=== PATIENT | female | born 1960 | race Caucasian/White ===

== ENCOUNTER 2016-08-01 01:26 | Emergency (ER) | payer OTHER ==
[~2016-08-01] VITALS: Ht 160 cm; Wt 52.8 kg
[~2016-08-01 01:26] MED LIST: HYDR-3307 PO; LISI-167 PO
[2016-08-01 01:36] VITALS: BP 135/88
[2016-08-01 02:31] LABS: BLOOD UREA NITROGEN 15 mg/dL (7-18)
[2016-08-01 02:34] LABS: ASPARTATE AMINO TRANSFERASE 37 U/L (15-37)
== END 2016-08-01 03:18 | disposition home or self-care (01) ==
LOC: ED 02:20
DX: R30.0 Dysuria (principal); I10 Essential (primary) hypertension; Z88.6 Allergy status to analgesic agent; Z88.8 Allergy status to other drugs, medicaments and biological substances
CPT/HCPCS: 36415; 80053; 81003; 83690; 85025; 99284

== ENCOUNTER 2017-01-13 18:30 | Emergency (ER) | payer OTHER ==
[~2017-01-13] VITALS: Ht 160 cm; Wt 52.2 kg
[2017-01-13] MEDS ORDERED: ASPIRIN 81 MG TABLET CHEW PO ONE (19:00)
[2017-01-13] MEDS ORDERED: ASPIRIN 81 MG TABLET CHEW ONE (19:05)
[2017-01-13 19:49] LABS: HEMATOCRIT 42.9 % (34.6-47.8); HEMOGLOBIN 14.8 g/dL (11.7-16.4); WHITE BLOOD COUNT 6.1 x10^3/uL (3.4-10)
[2017-01-13 20:01] LABS: BLOOD UREA NITROGEN 11 mg/dL (7-18)
[2017-01-13 20:06] LABS: IS PT STATUS REG ER OR PRE ER? YES
[2017-01-13 21:20] VITALS: BP 122/78
== END 2017-01-13 21:22 | disposition home or self-care (01) ==
LOC: ED 21:03
DX: R07.89 Other chest pain (principal); I10 Essential (primary) hypertension; F17.200 Nicotine dependence, unspecified, uncomplicated
CPT/HCPCS: 36415; 71020; 80048; 82040; 84484; 85025; 93005; 99285

== ENCOUNTER 2017-02-01 01:34 | Emergency (ER) | payer SELFPAY ==
[~2017-02-01] VITALS: Ht 160 cm; Wt 52.1 kg
[2017-02-01] MEDS ORDERED: DIAZEPAM 5 MG TABLET ONE (02:28)
[2017-02-01] MEDS ORDERED: OXYcodone/APAP 5/325MG TABLET ONE (02:28)
[2017-02-01] MEDS ORDERED: KETOROLAC 30 MG/1 ML ONE (02:29)
[2017-02-01] MEDS ORDERED: DIAZEPAM 5 MG TABLET PO ONE (02:30)
[2017-02-01] MEDS ORDERED: KETOROLAC 30 MG/1 ML IM ONE (02:30)
[2017-02-01] MEDS ORDERED: OXYcodone/APAP 5/325MG TABLET PO ONE (02:30)
[2017-02-01] MEDS ORDERED: CAPTOPRIL 50 MG TABLET PO ONE (04:00)
[2017-02-01 05:22] VITALS: BP 137/97
== END 2017-02-01 05:23 | disposition home or self-care (01) ==
LOC: ED 02:03
DX: M79.621 Pain in right upper arm (principal); I10 Essential (primary) hypertension
CPT/HCPCS: 71010; 73030; 93005; 96372; 99284; J1885

== ENCOUNTER 2017-09-05 05:58 | Emergency (ER) | payer SELFPAY ==
[~2017-09-05] VITALS: Ht 160 cm; Wt 50.0 kg
[2017-09-05 05:58] VITALS: BP 186/108
[2017-09-05] MEDS ORDERED: KETOROLAC 30 MG/1 ML ONE (06:18)
[2017-09-05] MEDS ORDERED: KETOROLAC 30 MG/1 ML IM ONE (06:30)
== END 2017-09-05 06:36 | disposition home or self-care (01) ==
LOC: ED 06:29
DX: S16.1XXA Strain of muscle, fascia and tendon at neck level, initial encounter (principal); S39.012A Strain of muscle, fascia and tendon of lower back, initial encounter; I10 Essential (primary) hypertension; Z98.51 Tubal ligation status; V43.53XA Car driver injured in collision with pick-up truck in traffic accident, initial encounter; Y93.89 Activity, other specified; Y92.89 Other specified places as the place of occurrence of the external cause; Y99.8 Other external cause status
CPT/HCPCS: 96372; 99283; J1885